=== PATIENT | female | born 2000 | race Caucasian/White ===

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

== ENCOUNTER → 2018-08-31 | Outpatient (CLI) | payer OTHER | END | disposition home or self-care (01) | LOC: LAB 06:00 → LAB SHORT 06:00 | DX: K52.9 Noninfective gastroenteritis and colitis, unspecified (principal); R63.4 Abnormal weight loss | CPT/HCPCS: 87177; 87209 ==

== ENCOUNTER → 2020-07-22 | Outpatient (CLI) | payer OTHER | END | disposition home or self-care (01) | LOC: LAB SHORT 09:49 → LAB 09:49 | PROVIDERS: Obstetrics & Gynecology | DX: Z01.419 Encounter for gynecological examination (general) (routine) without abnormal findings (principal) | CPT/HCPCS: G0123 ==

== ENCOUNTER → 2023-12-13 | Outpatient (CLI) | payer OTHER | LOC: LAB 11:20 → LAB SHORT 11:20 | DX: R10.9 Unspecified abdominal pain (principal) | CPT/HCPCS: 87086 ==

== ENCOUNTER → 2024-01-03 | Outpatient (CLI) | payer OTHER ==
[2024-01-08 06:50] LABS: C. TRACHOMATIS BY TMA,THINPREP Negative (Negative); N. GONORRHOEAE BY TMA,THINPREP Negative (Negative); SPECIMEN SOURCE Not Provided
== END ==
LOC: LAB 18:02 → LAB SHORT 18:02
PROVIDERS: Family Medicine
DX: Z01.419 Encounter for gynecological examination (general) (routine) without abnormal findings (principal); Z11.3 Encounter for screening for infections with a predominantly sexual mode of transmission
CPT/HCPCS: 87491; 87591

== ENCOUNTER → 2024-01-24 | Outpatient (CLI) | payer OTHER ==
[2024-01-24 18:41] LABS: Campylobacter Sp Detected (NOT DETECT); Enterotoxigenic E. coli-ETEC Detected (NOT DETECT)
[2024-01-24 18:42] LABS: Adenovirus F 40/41 Not Detected (NOT DETECT); Astrovirus Not Detected (NOT DETECT); Cryptosporidium Not Detected (NOT DETECT); Cyclospora Cayetanensis Not Detected (NOT DETECT); E. Coli O157 Not Detected (NOT DETECT); Entamoeba Histolytica Not Detected (NOT DETECT); Enteroaggregative E. coli-EAEC Not Detected (NOT DETECT); Enteropathogenic E. coli-EPEC Not Detected (NOT DETECT); Giardia Lamblia Not Detected (NOT DETECT); Norovirus GI/GII Not Detected (NOT DETECT); Plesiomonas Shigelloides Not Detected (NOT DETECT); Rotavirus A Not Detected (NOT DETECT); Salmonella Sp Not Detected (NOT DETECT); Sapovirus Not Detected (NOT DETECT); Shiga Toxin-prod E. coli-STEC Not Detected (NOT DETECT); Shigella/Enteroin E. coli-EIEC Not Detected (NOT DETECT); Vibrio Cholerae Not Detected (NOT DETECT); Vibrio Sp Not Detected (NOT DETECT); Yersinia Enterocolitica Not Detected (NOT DETECT)
== END ==
LOC: LAB 16:31 → LAB SHORT 16:31
PROVIDERS: Family Medicine
DX: K52.9 Noninfective gastroenteritis and colitis, unspecified (principal)
CPT/HCPCS: 87507

== ENCOUNTER → 2024-06-20 | Outpatient (CLI) | payer OTHER | LOC: LAB SHORT 18:32 → LAB 18:32 | DX: O09.92 Supervision of high risk pregnancy, unspecified, second trimester (principal) | CPT/HCPCS: 87081; 87150 ==

== ENCOUNTER 2024-07-06 20:14 | Inpatient (IN) | payer OTHER ==
[~2024-07-06] VITALS: Ht 160 cm; Wt 68.0 kg
[2024-07-06 20:24] VITALS: BP 120/73
[2024-07-06] MEDS ORDERED: Misoprostol 200 MCG Tab BC PRN (20:40)
[2024-07-06] MEDS ORDERED: Methylergonovine Maleate 0.2MG / ML 1ML Amp IM PRN (20:40)
[2024-07-06] MEDS ORDERED: Ondansetron HCl 2 MG / ML 2ML Vial IV PRN (20:40)
[2024-07-06] MEDS ORDERED: OXYTOCIN/RINGER'S LACTATE 500 ML IV PRN (20:40)
[2024-07-06] MEDS ORDERED: Lactated Ringer's 1,000 ML IV PRN (20:40)
[2024-07-06] MEDS ORDERED: Oxytocin 10 Unit / ML Vial IM PRN (20:40)
[2024-07-06] MEDS ORDERED: Misoprostol 200 MCG Tab PR PRN (20:40)
[2024-07-06] MEDS ORDERED: Acetaminophen 500 MG Tab PO PRN (20:40)
[2024-07-06] MEDS ORDERED: Carboprost Tromethamine 250 MCG/ML 1ML Amp IM PRN (20:40)
[2024-07-06] MEDS ORDERED: Calcium Carbonate 500 MG Tab Chew PO PRN (20:45)
[2024-07-06] MEDS ORDERED: Tranexamic Acid 100 ML IV PRN (20:50)
[2024-07-06] MEDS ORDERED: Misoprostol 25 MCG Tab VAG PRN (21:10)
[2024-07-06 21:12] LABS: BASOPHILS ABSOLUTE AUTO 0.04 K/mm3 (0.00-0.23); BASOPHILS PERCENT AUTO 0 % (0-2); EOSINOPHILS ABSOLUTE AUTO 0.29 K/mm3 (0.00-0.68); EOSINOPHILS PERCENT AUTO 3 % (0-6); Hematocrit 32.5 % (33.0-51.0); Hemoglobin 11.7 g/dL (11.5-16.0); IMMATURE GRAN ABSOLUTE AUTO 0.13 K/mm3 (0.00-0.10); IMMATURE GRAN PERCENT AUTO 1 % (0-1); LYMPHOCYTES ABSOLUTE AUTO 2.17 K/mm3 (0.84-5.20); LYMPHOCYTES PERCENT AUTO 21 % (21-46); MONOCYTES ABSOLUTE AUTO 1.39 K/mm3 (0.16-1.47); MONOCYTES PERCENT AUTO 13 % (4-13); Mean Corpuscular HGB 35.5 pg (26.0-34.0); Mean Corpuscular Volume 99 fL (80-100); Mean Platelet Volume 10.2 fL (9.1-12.4); NEUTROPHILS ABSOLUTE AUTO 6.34 K/mm3 (1.96-9.15); NEUTROPHILS PERCENT AUTO 61 % (41-73); Platelet Count 231 K/mm3 (150-400); RDW Coefficient Variation 13.8 % (11.7-14.2); RDW Standard Deviation 49.2 fL (35.1-46.3); White Blood Cell Count 10.36 K/mm3 (4.00-11.30)
[2024-07-06 21:41] VITALS: BP 93/51
[2024-07-06 21:55] VITALS: BP 105/70
[2024-07-07] VITALS (25 sets, daily range): BP systolic 94–125; BP diastolic 58–81
[2024-07-07] MEDS ORDERED: Misoprostol 25 MCG Tab PO SCH
[2024-07-07] MEDS ORDERED: FentaNYL 2mcg/ml-Bup 0.1% Epd 250 ML EPI PRN (07:30)
[2024-07-07] MEDS ORDERED: ePHEDrine Sulfate 50 MG/ML 1ML Injection XX PRN (07:30)
[2024-07-07] MEDS ORDERED: Lactated Ringer's 1,000 ML IV SCH ×2 (07:30)
[2024-07-07] MEDS ORDERED: FentaNYL Citrate 50 MCG/ML 2 ML Injection IV ONE (15:55)
[2024-07-07] MEDS ORDERED: FentaNYL Citrate 50 MCG/ML 2 ML Injection IV SCH (15:55)
[2024-07-07] MEDS ORDERED: FentaNYL Citrate 50 MCG/ML 2 ML Injection IV PRN (16:25)
[2024-07-07] MEDS ORDERED: Acetamin/Butalbital/Caffeine Tab PO ONE (19:55)
[2024-07-07] MEDS ORDERED: Zolpidem Tartrate 10 MG Tab PO SCH (21:00)
[2024-07-08] VITALS (28 sets, daily range): BP systolic 80–124; BP diastolic 47–74
[2024-07-08] MEDS ORDERED: Ibuprofen 400 MG Tab PO PRN (10:05)
[2024-07-08] MEDS ORDERED: Witch Hazel/Glycerin PADS TOP PRN (10:05)
[2024-07-08] MEDS ORDERED: Ketorolac Tromethamine 30mg Vial IV PRN (10:05)
[2024-07-08] MEDS ORDERED: OXYTOCIN/RINGER'S LACTATE 500 ML IV SCH (10:05)
[2024-07-08] MEDS ORDERED: Docusate Sodium 100 MG Cap PO PRN (10:05)
[2024-07-08] MEDS ORDERED: Lactated Ringer's 1,000 ML IV SCH (10:05)
[2024-07-08] MEDS ORDERED: Benzocaine Topical Anesthetic Spray 60GM TOP PRN (10:05)
[2024-07-08] MEDS ORDERED: Misoprostol 200 MCG Tab PR PRN (10:10)
[2024-07-08] MEDS ORDERED: Methylergonovine Maleate 0.2MG / ML 1ML Amp IM PRN (10:10)
[2024-07-08] MEDS ORDERED: Acetaminophen 325 MG TABLET PO PRN (10:10)
[2024-07-08] MEDS ORDERED: Rho(D) Immune Globulin 300 MCG / SYR IM ONE (10:10)
--- NOTE | 2024-07-08 13:00 | NUR ---
ASSUMED CARE AT THIS TIME DUE TO STAFFING ADJUSTMENT. ASSISTED TO SHOWER WITH 2 ASSIST. PT SHOWERED AND ASSISTED BACK TO BED. PT QUESTIONS ANSWERED. IN BED WITH SUPPORT PEOPLE AT BEDSIDE.
[2024-07-08] MEDS ORDERED: OxyCODONE HCL 5 MG TAB PO PRN (21:20)
[2024-07-08] MEDS ORDERED: Magnesium Oxide 400 MG Tab PO SCH (21:20)
[2024-07-08] MEDS ORDERED: Polyethylene Glycol 3350 17 gm PO SCH (21:25)
[2024-07-09 03:17] VITALS: BP 116/76
[2024-07-09 08:22] VITALS: BP 111/70
[2024-07-09] MEDS ORDERED: Prenatal Vit/FE Fumarate/FA 1 Tab PO SCH (09:00)
[2024-07-09 13:11] VITALS: BP 125/75
== END 2024-07-09 13:40 | disposition home or self-care (01) | DRG 768 ==
LOC: OBS 20:14 → BC 20:16 → OBS 20:40 → BC 20:40
PROVIDERS: ADMIT Obstetrics & Gynecology
PROC: 3E033VJ Introduction of Other Hormone into Peripheral Vein, Percutaneous Approach (ICD-10-PCS; 2024-07-07)
PROC: 3E0P7VZ Introduction of Hormone into Female Reproductive, Via Natural or Artificial Opening (ICD-10-PCS; 2024-07-07)
PROC: 10E0XZZ Delivery of Products of Conception, External Approach (ICD-10-PCS; principal; 2024-07-08)
PROC: 0DQR0ZZ Repair Anal Sphincter, Open Approach (ICD-10-PCS; 2024-07-08)
PROC: 3E0234Z Introduction of Serum, Toxoid and Vaccine into Muscle, Percutaneous Approach (ICD-10-PCS; 2024-07-08)
PROC: 10907ZC Drainage of Amniotic Fluid, Therapeutic from Products of Conception, Via Natural or Artificial Opening (ICD-10-PCS; 2024-07-08)
DX: O36.63X0 Maternal care for excessive fetal growth, third trimester, not applicable or unspecified (principal); Z37.0 Single live birth; O70.21 Third degree perineal laceration during delivery, IIIa; O99.344 Other mental disorders complicating childbirth; F41.8 Other specified anxiety disorders; O26.893 Other specified pregnancy related conditions, third trimester; Z67.11 Type A blood, Rh negative; Z3A.39 39 weeks gestation of pregnancy; Z88.1 Allergy status to other antibiotic agents; O75.89 Other specified complications of labor and delivery; Z23 Encounter for immunization; Z88.8 Allergy status to other drugs, medicaments and biological substances
CPT/HCPCS: 36415; 51702; 85025; 85460; 86850; 86900; 86901; A9270; J1885; J2405; J2590; J2791; J3010; J7120